=== PATIENT | male | born 1955 | race Caucasian/White ===

== ENCOUNTER → 2018-10-09 | Outpatient (CLI) | payer OTHER ==
[2018-10-01 15:00] VITALS: BP 155/74
[~2018-10-09] MED LIST: HYDR-2763 PO; PARO20TA99 PO
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
== END | disposition home or self-care (01) ==
LOC: RT 12:22
PROVIDERS: ATTEND Psychiatry & Neurology Neurology with Special Qualifications in Child Neurology
DX: G47.33 Obstructive sleep apnea (adult) (pediatric) (principal)
CPT/HCPCS: G0399